=== PATIENT | female | born 1990 | race Caucasian/White ===

== ENCOUNTER 2018-01-22 07:41 | Outpatient (CLI) | payer OTHER ==
[2018-01-22] VITALS (7 sets, daily range): BP systolic 100–117; BP diastolic 55–68
[~2018-01-22] VITALS: Ht 166.4 cm; Wt 67.7 kg
[2018-01-22] MEDS ORDERED: PRENATAL TABLE1 EACH PO (08:08)
[2018-01-22 09:14] LABS: APPEARANCE SL.HAZY ((CLEAR)); BILIRUBIN NEGATIVE; BLOOD SMALL; COLOR YELLOW ((YELLOW)); GLUCOSE (STRIP) NEGATIVE; KETONES NEGATIVE; LEUKOCYTES LARGE; NITRITE POSITIVE; PROTEIN (STRIP) 100; SPECIFIC GRAVITY 1.015 (1.000-1.030); UROBILINOGEN 0.2 MG/DL (0.2-1.0)
[2018-01-22 09:20] LABS: BACTERIA 3+ /HPF; EPITHELIAL CELLS RARE /HPF; MUCUS TRACE /LPF; UCUL ADDED? YES; WHITE BLOOD CELLS TNTC /HPF (0-5)
[2018-01-22 10:43] LABS: BASOPHIL (%) 0.2 % (0-1); EOSINOPHIL (%) 0 % (0-5); HEMATOCRIT 32.2 % (36.0-46.0); HEMOGLOBIN 11.5 G/DL (11.9-15.5); IMMATURE GRANULOCYTE (%) 0.6 % (0.0-0.7); LYMPHOCYTE (%) 4.7 % (15-42); LYMPHOCYTE COUNT 0.7 K/uL (1.0-2.8); MCH 32.1 PG (29.0-34.0); MCHC 35.7 G/DL (30.0-36.0); MCV 89.9 FL (83-99); MONOCYTE (%) 5.1 % (3-12); MONOCYTE COUNT 0.7 K/uL (0-0.8); NEUTROPHIL (%) 89.4 % (45-76); NEUTROPHIL COUNT 12.6 K/uL (1.8-6.4); PLATELET COUNT 126 K/uL (156-360); RBC DIS.WIDTH-CV 12.2 % (11.8-14.6); RBC DIS.WIDTH-SD 39.8 % (39-53); RED BLOOD COUNT 3.58 M/uL (3.80-5.20); WHITE BLOOD COUNT 14.1 K/uL (4.1-10.2)
[2018-01-23] VITALS (7 sets, daily range): BP systolic 93–134; BP diastolic 53–67
[2018-01-23 06:40] LABS: BASOPHIL (%) 0.3 % (0-1); EOSINOPHIL (%) 0.1 % (0-5); HEMATOCRIT 29.8 % (36.0-46.0); HEMOGLOBIN 10.4 G/DL (11.9-15.5); IMMATURE GRANULOCYTE (%) 0.4 % (0.0-0.7); LYMPHOCYTE (%) 8.4 % (15-42); MCH 31.8 PG (29.0-34.0); MCHC 34.9 G/DL (30.0-36.0); MCV 91.1 FL (83-99); MONOCYTE (%) 6.5 % (3-12); MONOCYTE COUNT 0.8 K/uL (0-0.8); NEUTROPHIL (%) 84.3 % (45-76); NEUTROPHIL COUNT 9.7 K/uL (1.8-6.4); PLATELET COUNT 121 K/uL (156-360); RBC DIS.WIDTH-CV 12.6 % (11.8-14.6); RBC DIS.WIDTH-SD 41.4 % (39-53); RED BLOOD COUNT 3.27 M/uL (3.80-5.20); WHITE BLOOD COUNT 11.5 K/uL (4.1-10.2)
[2018-01-24 04:15] VITALS: BP 105/63
[2018-01-24 06:36] LABS: BASOPHIL (%) 0.2 % (0-1); EOSINOPHIL (%) 0.4 % (0-5); IMMATURE GRANULOCYTE (%) 0.5 % (0.0-0.7); LYMPHOCYTE (%) 12.3 % (15-42); LYMPHOCYTE COUNT 1.3 K/uL (1.0-2.8); MCH 31.5 PG (29.0-34.0); MCHC 34.5 G/DL (30.0-36.0); MCV 91.5 FL (83-99); MONOCYTE (%) 6.9 % (3-12); MONOCYTE COUNT 0.7 K/uL (0-0.8); NEUTROPHIL (%) 79.7 % (45-76); NEUTROPHIL COUNT 8.2 K/uL (1.8-6.4); PLATELET COUNT 118 K/uL (156-360); RBC DIS.WIDTH-CV 12.5 % (11.8-14.6); RBC DIS.WIDTH-SD 41.8 % (39-53); RED BLOOD COUNT 3.17 M/uL (3.80-5.20); WHITE BLOOD COUNT 10.3 K/uL (4.1-10.2)
[2018-01-24 07:34] VITALS: BP 84/44
[2018-01-24] MEDS ORDERED: ONDANSETRON ODT4 MG PO (08:49)
[2018-01-24] MEDS ORDERED: BACTRIM,SEPT1 TABLET PO (08:49)
[2018-01-24] MEDS ORDERED: OXYCODONE HCL5 MG PO (08:49)
[2018-01-24] MEDS ORDERED: MACROBID100 MG PO (08:50)
== END 2018-01-24 09:59 | disposition home or self-care (01) ==
LOC: LDRP-OP 07:41 → 2WEST 07:42
PROVIDERS: Advanced Practice Midwife; Obstetrics & Gynecology Obstetrics
DX: O23.03 Infections of kidney in pregnancy, third trimester (principal); N12 Tubulo-interstitial nephritis, not specified as acute or chronic; B96.20 Unspecified Escherichia coli [E. coli] as the cause of diseases classified elsewhere; Z87.891 Personal history of nicotine dependence; Z3A.29 29 weeks gestation of pregnancy
CPT/HCPCS: 59025; 76770; 81003; 85025; 87077; 87086; 87186; G0378; J0696